=== PATIENT | female | born 1955 | race Asian ===

== ENCOUNTER 2020-01-06 14:11 | Outpatient (CLI) | payer OTHER, SELFPAY ==
--- NOTE | ~2020-01-06 | MM_ITS ---
EXAMINATION: MM screening [facility] BI w delilah HISTORY: Screening mammogram TECHNIQUE: Craniocaudal and mediolateral oblique 3-D tomosynthesis images were obtained and synthetic 2-D images were generated. CAD analysis was submitted and interpreted. COMPARISON: 12/08/2018, 08/17/2017, 01/18/2013 BREAST PARENCHYMAL COMPOSITION: The breasts are heterogeneously dense, which may obscure small masses . FINDINGS: There is no evidence of suspicious mass, calcification, or architectural distortion to sugg est malignancy in either breast. There has been no suspicious interval change. IMPRESSION: 1. No mammographic evidence of malignancy. 2. Recommend routine screening mammography in one year. BI-RADS Category 1: Negative Reviewed, dictated and finalized at location A.
== END 2020-01-06 14:12 | disposition home or self-care (01) ==
LOC: ANHIMG 14:13
PROVIDERS: PCP Family Medicine; Visit Provider Family Medicine
DX: Z12.31 Encounter for screening mammogram for malignant neoplasm of breast (principal)
CPT/HCPCS: 77063; 77067

== ENCOUNTER 2020-09-28 08:50 | Emergency (ER) | payer MEDICARE, OTHER, SELFPAY ==
[2020-09-28 09:02] VITALS: BP 149/90; PULSE 92; RESP 16; TEMP 36.6; O2SAT 98
--- NOTE | 2020-09-28 09:14 | ED.SKABFB ---
HPI - Skin/Abscess/Foreign Bdy General Chief complaint: Skin/Abscess/Foreign Body Stated complaint: Insect Bites Time Seen by Provider: 09/28/20 09:06 Source: patient and RN notes reviewed Mode of arrival: ambulatory Limitations: no limitations History of Present Illness HPI narrative: Patient presents today complaining of severely pruritic insect bites to the bilateral extremities and low back x2 days. She noted the insect bites when they return from her cabin. She has been using Benadryl, leftover hydroxyzine, hydrocortisone, and alcohol wipes without much relief. MD complaint: insect bite/sting Related Data Home Medications Medication Instructions Recorded Confirmed ergocalciferol (vitamin D2) 09/28/20 Allergies Allergy/AdvReac Type Severity Reaction Status Date / Time No Known Allergies Allergy Unknown Unverified 09/28/20 09:00 Review of Systems Review of Systems: Narrative: CONSTITUTIONAL: Denies body aches, fever, chills, or sweats. EYES: Denies visual changes, redness, or discharge. ENT: Denies rhinorrhea, congestion, sore throat, or otalgia. CARDIOVASCULAR: Denies chest pain, palpitations, or edema. RESPIRATORY: Denies cough or dyspnea. GASTROINTESTINAL: Denies abdominal pain, nausea, vomiting, or diarrhea. GENITOURINARY: Denies dysuria or hematuria. SKIN: + Insect bites MUSCULOSKELETAL: Denies back pain, joint pain, or myalgia. NEUROLOGIC: Denies headache, numbness, tingling, or weakness. PSYCH: Denies depression or anxiety. [facility] Past Medical History Medical History Borderline diabetes HTN (hypertension) Hypothyroidism (acquired) Mixed hyperlipidemia Family History Family History Mother Hypertension Family history of elevated blood lipids Family history of diabetes mellitus in first degree relative Social History Social History Social History: Smoking status: Never smoker Tobacco type: cigarettes Second hand tobacco smoke exposure: No Smoking end date: 04/06/08 Alcohol intake: current Drinks per week: 2 Substance use: never Substance use type: does not use Gender identity (if verbalized by the patient): Female Comments At time of signature, I have reviewed and agree with nursing past medical, surgical, social and family history unless otherwise noted. Please see nursing chart for further information. There is no relevant family history pertinent to the presenting complaint Exam Narrative: Exam Narrative: GENERAL: Well-appearing, well-nourished, and in no acute distress. HEAD: Normocephalic, atraumatic. EYES: EOMI. No redness or drainage. Conjunctivae normal. ENT: Mucous membranes pink and moist. NECK: Normal AROM. CHEST: No respiratory distress. EXTREMITIES: Normal range of motion. No edema. SKIN: Warm, dry. Capillary refill normal. Normal skin turgor. Scattered erythematous papules over the bilateral upper and lower extremities and cluster of the low back consistent with tiny bug bites. No pustules or vesicles noted. No induration or fluctuance noted. No other signs of bacterial infection. NEURO: No focal deficits. Alert and oriented x3. Gait steady. PSYCH: Normal affect. No signs of depression or anxiety. Course Vital Signs Vital signs: Vital Signs Temperature 97.9 F 09/28/20 09:02 Pulse Rate 92 09/28/20 09:02 Respiratory Rate 16 09/28/20 09:02 Blood Pressure 149/90 H 09/28/20 09:02 Pulse Oximetry 98 09/28/20 09:02 Temperature 97.9 F 09/28/20 09:02 Pulse Rate 92 09/28/20 09:02 Respiratory Rate 16 09/28/20 09:02 Blood Pressure 149/90 H 09/28/20 09:02 Pulse Oximetry 98 09/28/20 09:02 Reviewed. Pt has been instructed to follow up with her PCP regarding her elevated blood pressure today. MDM - Skin/Abscess/Foreign Bd
== END 2020-09-28 09:22 | disposition home or self-care (01) ==
PROVIDERS: Emergency Provider Nurse Practitioner; PCP Family Medicine
DX: S40.862A Insect bite (nonvenomous) of left upper arm, initial encounter (principal); S40.861A Insect bite (nonvenomous) of right upper arm, initial encounter; S80.862A Insect bite (nonvenomous), left lower leg, initial encounter; S80.861A Insect bite (nonvenomous), right lower leg, initial encounter; S30.860A Insect bite (nonvenomous) of lower back and pelvis, initial encounter; W57.XXXA Bitten or stung by nonvenomous insect and other nonvenomous arthropods, initial encounter; R73.03 Prediabetes; I10 Essential (primary) hypertension; E03.9 Hypothyroidism, unspecified; E78.2 Mixed hyperlipidemia
CPT/HCPCS: 99213; G0463

== ENCOUNTER 2021-03-06 13:46 | Outpatient (CLI) | payer MEDICARE, OTHER, SELFPAY ==
--- NOTE | ~2021-03-06 | US_ITS ---
EXAMINATION: US soft tissue head and neck DATE: 03/06/2021 14:11 INDICATION: Asymmetric right supraclavicular mass/swelling. TECHNIQUE: Multiple grayscale and Doppler ultrasound images were obtained of the right supraclavicula r region of concern and of the contralateral left supraclavicular region for comparison. COMPARISON: None FINDINGS: Normal-sized 8 x 4 x 6 mm hypoechoic right supraclavicular lymph node. The subcutaneous fat in the re troclavicular region appears slightly thicker than in the contralateral left supraclavicular region. No discrete lipoma or other soft tissue masses identified. No fluid collections identified. IMPRESSION: 1. Unremarkable study with normal sized lymph node and no abnormal masses or fluid collections in the right supra clavicular region of concern. Reviewed, dictated and finalized at location A. H RN IMPRESSION: 1. Unremarkable study with normal sized lymph node and no abnormal masses or fl uid collections in the right supra clavicular region of concern.
== END 2021-03-06 13:47 | disposition home or self-care (01) ==
PROVIDERS: PCP Family Medicine; Visit Provider Physician Assistant
DX: R22.1 Localized swelling, mass and lump, neck (principal)
CPT/HCPCS: 76536

== ENCOUNTER 2021-05-29 14:32 | Outpatient (CLI) | payer MEDICARE, OTHER, SELFPAY ==
--- NOTE | ~2021-05-29 | MM_ITS ---
EXAMINATION: MM screening [facility] BI w delil[facility] HISTORY: Screening mammogram TECHNIQUE: Craniocaudal and mediolateral oblique 3-D tomosynthesis images were obtained and synthetic 2-D images were generated. CAD analysis was submitted and interpreted. COMPARISON: 01/06/2020, 12/2018, 08/17/2017 bilateral screening mammogram examinations BREAST PARENCHYMAL COMPOSITION: The breasts are heterogeneously dense, which may obscure small masses . FINDINGS: There is no evidence of suspicious mass, calcification, or architectural distortion to sugg est malignancy in either breast. There has been no suspicious interval change. IMPRESSION: 1. No mammographic evidence of malignancy. 2. Recommend routine screening mammography in one year. BI-RADS Category 1: Negative Reviewed, dictated and finalized at location A. [employer] PROFESSOR
== END 2021-05-29 14:33 | disposition home or self-care (01) ==
PROVIDERS: PCP Family Medicine; Visit Provider Physician Assistant
DX: Z12.31 Encounter for screening mammogram for malignant neoplasm of breast (principal)
CPT/HCPCS: 77063; 77067

== ENCOUNTER 2021-09-03 10:31 | Outpatient (CLI) | payer MEDICARE, OTHER, SELFPAY ==
--- NOTE | ~2021-09-03 | DEXA_ITS ---
Bone Density Report Name: JOHN MILES Age: 66 Sex: Female Ethnicity: Date of : 1955 Indication: postmenopausal; screening for osteoporosis; Referring Provider: RAKESH, MAIDA Garg Study: Bone densitometry was performed. Exam Date: September 03, 2021 Accession number: [id number] Bone Density: Region BMD T-score Z-score Classification AP Spine(L1, L2, L3) 0.981 -0.3 1.5 Normal Femoral Neck (Left) 0.689 -1.4 0.1 Osteopenia Total Hip (Left) 0.865 -0.6 0.7 Normal Femoral Neck (Right) 0.711 -1.2 0.3 Osteopenia Total Hip (Right) 0.908 -0.3 1.0 Normal Total Hip Mean 0.886 -0.5 0.9 Normal World Health Organization criteria for BMD impression classify patients as: Normal (T-score at or above -1.0), Osteopenia (T-score between -1.0 and -2.5), or Osteoporosis (T-score at or below -2.5). 10-year Fracture Risk(1): Major Osteoporotic Fracture 4.8% Hip Fracture 0.5% Reported Risk Factors: [place] (), Neck BMD=0.689, BMI=28.8 (1) FRAX(R) Version 3.08. Fracture probability calculated for an untreated patient. Fracture probability may be lower if the patient has received treatment. Previous Exams: Region Exam Age BMD T-score BMD Change BMD Change Date g/cm2 vs Baseline vs Previous AP Spine (L1-L3) 09/03/2021 66 0.981 -0.3 0.027 (2.8%)# 0.025 (2.6%)* 12/08/2018 63 0.956 -0.6 0.002 (0.2%)# -0.005 (-0.5%) 03/23/2015 59 0.961 -0.5 0.006 (0.7%)# 0.006 (0.7%)# 01/18/2013 57 0.955 -0.6 Total Hip(Left) 09/03/2021 66 0.865 -0.6 0.002 (0.3%)# -0.080 (-8.5%) 12/08/2018 63 0.944 0.0 0.082 (9.5%)# 0.073 (8.4%)* 03/23/2015 59 0.871 -0.6 0.009 (1.1%)# 0.009 (1.1%)# 01/18/2013 57 0.862 -0.7 Total Hip(Right) 09/03/2021 66 0.908 -0.3 0.031 (3.5%)# -0.023 (-2.5%) 12/08/2018 63 0.932 -0.1 0.054 (6.2%)# 0.062 (7.1%)* 03/23/2015 59 0.869 -0.6 -0.008 (-0.9%) -0.008 (-0.9%) 01/18/2013 57 0.877 -0.5 *Denotes significance at 95% confidence level, LSC for AP Spine = 0.022 g/cm2, LSC for Total Hip = 0.027 g/cm2 # Denotes dissimilar scan types or analysis methods Clinical Information Provided by Patient: Has used the following medications: Vitamin D, Calcium Patient maximum height was 59.5 Menopause Age: 40 Does not regularly consume dairy products Drinks caffeinated beverages Onset of menses at age 13 Number of children 1 Impression: The patient has low
== END 2021-09-03 10:32 | disposition home or self-care (01) ==
PROVIDERS: PCP Family Medicine; Visit Provider Family Medicine
DX: Z78.0 Asymptomatic menopausal state (principal); M85.89 Other specified disorders of bone density and structure, multiple sites
CPT/HCPCS: 77080

== ENCOUNTER 2021-09-19 15:07 | Outpatient (CLI) | payer MEDICARE, OTHER, SELFPAY ==
--- NOTE | ~2021-09-19 | XR_ITS ---
XR knee LT 3V DATE: 09/19/2021 15:28 INDICATION: Medial and posterior knee pain for 2 weeks. No injury. TECHNIQUE: AP, lateral and sunrise views COMPARISON: None FINDINGS: There is slight periarticular spurring of the patella consistent with minimal patellofemora l osteoarthritis. Joint spaces are well preserved. No radiopaque intra-articular loose body or chondr ocalcinosis. No fracture or dislocation or joint effusion. No periosteal reaction or bone destruction. IMPRESSION: Slight patellofemoral osteoarthritis Reviewed, dictated and finalized at location A.
== END 2021-09-19 15:08 | disposition home or self-care (01) ==
PROVIDERS: PCP Family Medicine; Visit Provider Family Medicine
DX: M23.90 Unspecified internal derangement of unspecified knee (principal); M25.562 Pain in left knee; M17.12 Unilateral primary osteoarthritis, left knee
CPT/HCPCS: 73562

== ENCOUNTER 2021-09-24 15:37 | Outpatient (CLI) | payer MEDICARE, OTHER, SELFPAY ==
--- NOTE | ~2021-09-24 | CT_ITS ---
EXAMINATION: CT knee LT wo con DATE: 09/24/2021 16:09 INDICATION: Left knee pain TECHNIQUE: High resolution computed tomography (CT) of the left knee was performed without intravenou s contrast. Additional sagittal and coronal reconstructions were performed. Automated exposure contro l and iterative reconstruction technique were employed. The dose-length product was 388.35 mGy-cm. COMPARISON: Radiograph dated 09/19/2021 FINDINGS: Alignment is normal. No fracture. Joint spaces are normal on nonweightbearing imaging. There is a sma ll knee joint effusion at the suprapatellar pouch. Mild cortical irregularity and subarticular cystli ke changes at the caudal aspect of the medial trochlea suggesting overlying high-grade chondromalacia . The visualized soft tissues are unremarkable. IMPRESSION: 1. Joint spaces appear normal on nonweightbearing imaging but with small region of cortical regularit y at the inferior aspect of the medial trochlea suggesting overlying high-grade chondromalacia. Line 2. Small left knee joint effusion. Reviewed, dictated and finalized at location B. IMPRESSION: 1. Joint spaces appear normal on nonweightbearing imaging but with small region of cortical regularity at the inferior aspect of the medial trochlea suggestin g overlying high-grade chondromalacia. Line 2. Small left knee joint effusion.
== END 2021-09-24 15:38 | disposition home or self-care (01) ==
PROVIDERS: PCP Family Medicine; Visit Provider Family Medicine
DX: M25.562 Pain in left knee (principal); M25.462 Effusion, left knee
CPT/HCPCS: 73700

== ENCOUNTER 2022-08-06 13:19 | Outpatient (CLI) | payer MEDICARE, OTHER, SELFPAY ==
--- NOTE | ~2022-08-06 | MM_ITS ---
EXAMINATION: MM screening [facility] BI w delilah HISTORY: Screening mammogram TECHNIQUE: Craniocaudal and mediolateral oblique 3-D tomosynthesis images were obtained and synthetic 2-D images were generated. CAD analysis was submitted and interpreted. COMPARISON: 05/29/2021, 01/06/2020, 12/08/2018 BREAST PARENCHYMAL COMPOSITION: The breasts are heterogeneously dense, which may obscure small masses . FINDINGS: No suspicious mass, calcification, or architectural distortion are identified in either mans[place] ast to suggest malignancy. There has been no suspicious interval change. IMPRESSION: 1. No mammographic evidence of malignancy. 2. Recommend routine screening mammography in one year. BI-RADS Category 1: Negative Reviewed, dictated and finalized at location A.
== END 2022-08-06 13:20 | disposition home or self-care (01) ==
LOC: ANHIMG 13:21
PROVIDERS: PCP Family Medicine; Visit Provider Nurse Practitioner Gerontology
DX: Z12.31 Encounter for screening mammogram for malignant neoplasm of breast (principal)
CPT/HCPCS: 77063; 77067

== ENCOUNTER 2022-08-07 08:26 | Day surgery (SDC) | payer MEDICARE, OTHER, SELFPAY ==
[2022-06-26 10:15] VITALS: BMI 28.3
[2022-07-23 11:07] VITALS: BMI 29.7
--- NOTE | 2022-08-06 11:59 | WPDANESEPPF ---
Anes - Initial Pre Proc Eval Procedure: Operation Date: 08/07/22 10:00 Proposed Procedures p Screening Colonoscopy - Ruy James MD Date/Time: 08/06/22 11:59 Surgeon: Ruy James MD Pre Op Diagnosis: Neoplasm Screening Patient Data Age: 67 Gender: F Height: 1.52 m Weight: 69 kg Allergies Allergy/AdvReac Type Severity Reaction Status Date / Time No Known Allergies Allergy Unknown Verified 08/07/22 09:08 Home Medications Medication Instructions Recorded Confirmed Type amlodipine 5 mg tablet See Rx Instructions .Route 05/20/22 08/07/22 Rx .COMPLEX #90 tabs levothyroxine 75 mcg tablet See Rx Instructions .Route 05/20/22 08/07/22 Rx .COMPLEX #90 tabs losartan 100 mg tablet See Rx Instructions .Route 05/20/22 08/07/22 Rx .COMPLEX #90 tabs simvastatin 20 mg tablet See Rx Instructions .Route 05/20/22 08/07/22 Rx .COMPLEX #90 tabs hydroxyzine HCl 25 mg tablet See Rx Instructions .Route 05/27/22 08/07/22 Rx .COMPLEX #60 tabs escitalopram oxalate 10 mg tablet 10 mg PO DAILY #30 tabs 06/25/22 08/07/22 Rx (Lexapro) ergocalciferol (vitamin D2) 1,250 1,250 mcg PO WEEKLY #14 caps 07/14/22 08/07/22 Rx mcg (50,000 unit) capsule oxybutynin chloride 5 mg 5 mg PO DAILY #90 tabs 07/23/22 08/07/22 Rx tablet,extended release 24 hr Patient hx anesthesia problems: none Family hx anesthesia problems: none Results Review: All pre-operative results and documents have been reviewed as part of the pre-operative evaluation. [facility] Past Medical History Medical History Anxiety Arthritis Borderline diabetes HTN (hypertension) Hypothyroidism (acquired) Leg cramps Mixed hyperlipidemia Family History Family History Mother Hypertension Family history of elevated blood lipids Family history of diabetes mellitus in first degree relative Heart disease Sibling Cancer Father Hypertension Heart disease Social History Social History (Updated 07/17/22 @ 10:27 by Liz Cavazos) Social History: Smoking status: Never smoker Tobacco type: cigarettes Second hand tobacco smoke exposure: No Smoking end date: 04/06/08 Alcohol intake: current Alcohol use details: socially Substance use: never Substance use type: does not use Lack of Transportation: No Lack of Food: Never True Current Housing: I Have Housing Concerned About Future Housing: No Difficulty Paying Gas/Electric Bills: No Difficulty Paying for Meds: No Currently Unemployed: YES Education: Decline to Answer Difficulty w/ Childcare or Family Care: No Living arrangements: with family Occupation/Education: retired Gender identity (if verbalized by the patient): Female Sexual Orientation (if Verbalized by the Patient): Straight or Heterosexual Spiritual care concerns: No Anes - Eval Final PreProcedure Day of Procedure 08/06/22 11:59 Patient weight: overweight Heart: regular rate and rhythm Lungs: clear to auscultation and normal air movement Airway: Mallampati scale class II Neurological: alert and oriented Last oral intake: >/= 8 hours ASA classification: III Emergent: no Anesthetic plan: proceed Anesthesia type and monitoring: general GIVS Results Review: All pre-operative results and documents have been reviewed as part of the pre-operative evaluation. Informed Consent: The patient's anesthetic plan and its attendant risks and benefits were discussed with the patient/family/POA. Questions were solicited and answers provided to the satisfaction of the patient/family/POA.
--- NOTE | 2022-08-06 12:32 | PM.HPGS ---
History of Present Illness History of Present Illness Consent: Risks, benefits, and alternatives have been discussed and questions answered. Patient agrees to proceed with procedure. Chief complaint: Neoplasm Screening Narrative: Micaela Luciano is a 67 year old female For colon cancer screening. She had a small polyp removed at the time of her colonoscopy 7 years ago. Review of Systems Review of Systems: All systems reviewed & are unremarkable except as noted in HPI and below PMFSH Past Medical History Medical History Anxiety Arthritis Borderline diabetes HTN (hypertension) Hypothyroidism (acquired) Leg cramps Mixed hyperlipidemia Family History Family History Mother Hypertension Family history of elevated blood lipids Family history of diabetes mellitus in first degree relative Heart disease Sibling Cancer Father Hypertension Heart disease Social History Social History Social History: Smoking status: Never smoker Tobacco type: cigarettes Second hand tobacco smoke exposure: No Smoking end date: 04/06/08 Alcohol intake: current Alcohol use details: socially Substance use: never Substance use type: does not use Lack of Transportation: No Lack of Food: Never True Current Housing: I Have Housing Concerned About Future Housing: No Difficulty Paying Gas/Electric Bills: No Difficulty Paying for Meds: No Currently Unemployed: YES Education: Decline to Answer Difficulty w/ Childcare or Family Care: No Living arrangements: with family Occupation/Education: retired Gender identity (if verbalized by the patient): Female Sexual Orientation (if Verbalized by the Patient): Straight or Heterosexual Spiritual care concerns: No Meds Home Medications and Allergies Home Medications Medication Instructions Recorded Confirmed Type amlodipine 5 mg tablet See Rx Instructions .Route 05/20/22 08/07/22 Rx .COMPLEX #90 tabs levothyroxine 75 mcg tablet See Rx Instructions .Route 05/20/22 08/07/22 Rx .COMPLEX #90 tabs losartan 100 mg tablet See Rx Instructions .Route 05/20/22 08/07/22 Rx .COMPLEX #90 tabs simvastatin 20 mg tablet See Rx Instructions .Route 05/20/22 08/07/22 Rx .COMPLEX #90 tabs hydroxyzine HCl 25 mg tablet See Rx Instructions .Route 02/21/23 05/04/23 Rx .COMPLEX #60 tabs escitalopram oxalate 10 mg tablet 10 mg PO DAILY #30 tabs 06/25/22 08/07/22 Rx (Lexapro) ergocalciferol (vitamin D2) 1,250 1,250 mcg PO WEEKLY #14 caps 07/14/22 08/07/22 Rx mcg (50,000 unit) capsule oxybutynin chloride 5 mg 5 mg PO DAILY #90 tabs 07/23/22 08/07/22 Rx tablet,extended release 24 hr Allergies Allergy/AdvReac Type Severity Reaction Status Date / Time No Known Allergies Allergy Unknown Verified 08/07/22 09:08 Exam Const: General: alert Orientation/consciousness: patient oriented x3 Resp: Auscultation: clear to auscultation bilaterally Cardio: Rhythm: regular rhythm GI: GI Palp: Yes Soft to palpation and No Tenderness to palpation present (GI) Neuro: General: patient oriented x3 Assessment and Plan Assessment and plan (1) Colon cancer screening: Code(s): Z12.11 - Encounter for screening for malignant neoplasm of colon Status: Acute Assessment and Plan: Colonoscopy with possible biopsy or polypectomy or cautery or injection of substances.
[2022-08-07 08:45] VITALS: BP 132/80; PULSE 75; RESP 20; TEMP 36.7; O2SAT 95
[2022-08-07] MEDS: LACTATED RINGERS 1,000 ML 150 ML IV CONT (09:12)
[2022-08-07 10:24] VITALS: BP 84/68; PULSE 88; RESP 16; O2SAT 96
[2022-08-07 10:34] VITALS: BP 96/68; PULSE 88; RESP 16; O2SAT 96
--- NOTE | 2022-08-07 10:44 | SUR.PHASEII ---
PT AWAKE AND ALERT. DRINKING JUICE. DENIES PAIN OR NAUSEA. TALKATIVE WITH SPOUSE.
[2022-08-07 10:45] VITALS: BP 133/82; PULSE 85; RESP 16; O2SAT 97
--- NOTE | 2022-08-19 08:30 | WPDANESPN ---
Anes - Prog Note Post-Op Date/Time: 08/19/22 08:30 Cardiovascular status: normal Respiratory status: normal Airway patency: baseline Mental status: baseline Post-Op hydration status: normal Vital Signs: Last Vital Signs Temp 36.7 C 08/07/22 08:45 Pulse 85 08/07/22 10:45 Resp 16 08/07/22 10:45 BP 133/82 08/07/22 10:45 Pulse Ox 97 08/07/22 10:45 O2 Del Method Room Air 08/07/22 10:45 Pain Score (VAS): 0 Post-procedural complaints: none Patient Feedback: Patient satisfied with anesthetic care.
== END 2022-08-07 11:00 | disposition home or self-care (01) ==
PROVIDERS: Visit Provider Internal Medicine Gastroenterology
PROC: 0DJD8ZZ Inspection of Lower Intestinal Tract, Via Natural or Artificial Opening Endoscopic (ICD-10-PCS; CPT 45378; principal; 2022-08-07 10:00)
DX: Z12.11 Encounter for screening for malignant neoplasm of colon (principal)
CPT/HCPCS: 45378

== ENCOUNTER 2022-08-08 10:57 | Emergency (ER) | payer MEDICARE, OTHER, SELFPAY ==
[2022-08-08 11:08] VITALS: BP 130/79; PULSE 95; RESP 16; TEMP 36.5; O2SAT 98
--- NOTE | 2022-08-08 11:28 | ED.SKABFB ---
HPI - Skin/Abscess/Foreign Bdy General Chief complaint: Skin/Abscess/Foreign Body Stated complaint: Rash Time Seen by Provider: 08/08/22 11:30 Source: patient Mode of arrival: ambulatory Limitations: no limitations History of Present Illness HPI narrative: 67 y/o female presented for c/o rash to abdomen for about 1 week. Taking benadryl. States rash is itchy and painful. Denies drainage. Ot states she has had similar rash in the past and has improved with steroid and cream. Patient denies any other location of lesions/rash. Denies lip, tongue, or throat swelling, shortness of breath or wheezing. Denies changes to soap, detergent, lotion, or any other exposures. No other contacts in the home with similar rash. Related Data Allergies Allergy/AdvReac Type Severity Reaction Status Date / Time No Known Allergies Allergy Unknown Verified 08/08/22 11:04 Review of Systems Review of Systems: CONSTITUTIONAL: Denies body aches, fever, chills, or sweats. EYES: Denies visual changes, redness, or discharge. ENT: Denies rhinorrhea, congestion CARDIOVASCULAR: Denies chest pain, palpitations, or edema. RESPIRATORY: Denies cough or dyspnea. GASTROINTESTINAL: Denies abdominal pain, nausea, vomiting, or diarrhea. SKIN: per HPI MUSCULOSKELETAL: Denies back pain, joint pain, or myalgia. NEUROLOGIC: Denies headache, numbness, tingling, or weakness. [facility] Past Medical History Medical History Anxiety Arthritis Borderline diabetes HTN (hypertension) Hypothyroidism (acquired) Leg cramps Mixed hyperlipidemia Family History Family History Mother Hypertension Family history of elevated blood lipids Family history of diabetes mellitus in first degree relative Heart disease Sibling Cancer Father Hypertension Heart disease Social History Social History Social History: Smoking status: Never smoker Tobacco type: cigarettes Second hand tobacco smoke exposure: No Smoking end date: 04/06/08 Alcohol intake: current Alcohol use details: socially Substance use: never Substance use type: does not use Lack of Transportation: No Lack of Food: Never True Current Housing: I Have Housing Concerned About Future Housing: No Difficulty Paying Gas/Electric Bills: No Difficulty Paying for Meds: No Currently Unemployed: YES Education: Decline to Answer Difficulty w/ Childcare or Family Care: No Living arrangements: with family Occupation/Education: retired Gender identity (if verbalized by the patient): Female Sexual Orientation (if Verbalized by the Patient): Straight or Heterosexual Spiritual care concerns: No Comments At time of signature, I have reviewed and agree with nursing past medical, surgical, social and family history unless otherwise noted. Please see nursing chart for further information. There is no relevant family history pertinent to the presenting complaint Exam Narrative: GENERAL: Well-appearing HEAD: Normocephalic, atraumatic. EYES: conjunctivae clear, and EOMI. ENT: Mucous membranes moist. Oropharynx without edema, erythema or lesions. NECK: Supple. No lymphadenopathy CHEST: Clear to auscultation. HEART: Regular rate and rhythm. SKIN: Warm, dry. Mildly erythematous slightly raised patches to both sides of abdomen, consistent with urticaria; no other locations. NEURO: Alert and oriented x3. Course Course Emergency Course: Patient is aware of diagnosis, understands and agrees to treatment plan. Anticipatory guidance given. Patient agrees to follow-up as directed and is aware of reasons to seek care at the emergency department. Portions of this record may have been created with voice recognition software Level of Care: Express Care Visit Vital Signs Vital signs: Vital Signs
[2022-08-08] MEDS: methylPREDNISolone ACETATE 40 MG/ML VIAL IM (11:49)
== END 2022-08-08 11:55 | disposition home or self-care (01) ==
PROVIDERS: Emergency Provider Nurse Practitioner Family; PCP Family Medicine
DX: L50.9 Urticaria, unspecified (principal); I10 Essential (primary) hypertension; E03.9 Hypothyroidism, unspecified; E78.2 Mixed hyperlipidemia; Z87.891 Personal history of nicotine dependence
CPT/HCPCS: 99213; G0463; J1030

== ENCOUNTER 2023-04-28 13:59 | Outpatient (CLI) | payer MEDICARE, OTHER, SELFPAY ==
[2023-04-28 14:39] LABS: Appearance Urine Clear (Clear); Bacteria Urine None Seen /hpf; Bilirubin Urine Negative (Negative); Blood Urine Negative (Negative); Color Urine Yellow (Yellow); Glucose Urine UA Negative (Negative); Ketones Urine Negative (Negative); Leukocyte Esterase Ur Trace LEU/UL (Negative); Nitrate Urine Negative (Negative); Non Pathogenic Casts 0-2; Protein Urine Negative (Negative); RBC Urine 0-2 /hpf (0-2); Specific Grav Ur 1.008 (1.001-1.035); Squamous Epithelial Cell Urine None seen /hpf (Few); Urobilinogen Urine 0.2 mg/dL (<2.0); WBC Urine 0-5 /hpf
[2023-04-28 15:00] LABS: Add Urine Microscopic? YES
== END 2023-04-28 14:00 | disposition home or self-care (01) ==
PROVIDERS: PCP Family Medicine; Visit Provider Family Medicine
DX: R30.0 Dysuria (principal)
CPT/HCPCS: 81001

== ENCOUNTER 2023-07-14 15:17 | Outpatient (CLI) | payer MEDICARE, OTHER, SELFPAY ==
--- NOTE | ~2023-07-14 | XR_ITS ---
XR chest 2V 07/14/2023 15:37 Indication: Dry cough at night Procedure: PA and lateral views of the chest Comparison: No prior studies for comparison. Findings: Heart size normal. No focal air space disease, pulmonary edema, pleural effusion or suspect ed pneumothorax. Impression: 1: No acute cardiopulmonary disease. Reviewed, dictated and finalized at location A. Impression: 1: No acute cardiopulmonary disease.
== END 2023-07-14 15:18 | disposition home or self-care (01) ==
PROVIDERS: PCP Family Medicine; Visit Provider Family Medicine
DX: R05.9 Cough, unspecified (principal)
CPT/HCPCS: 71046

== ENCOUNTER 2024-09-29 14:42 | Outpatient (CLI) | payer MEDICARE, OTHER, SELFPAY ==
--- NOTE | ~2024-09-29 | DEXA_ITS ---
Bone Density Report Name: JOHN MILES Age: 69 Sex: Female Ethnicity: Date of : 1955 Indication: postmenopausal; screening for osteoporosis; Referring Provider: RACHEL ACOSTA Study: Bone densitometry was performed. Exam Date: September 29, 2024 Accession number: [id number] Bone Density: Region BMD T-score Z-score Classification AP Spine(L1-L4) 0.984 -0.6 1.5 Normal Femoral Neck (Left) 0.692 -1.4 0.3 Osteopenia Total Hip (Left) 0.929 -0.1 1.4 Normal Femoral Neck (Right) 0.679 -1.5 0.2 Osteopenia Total Hip (Right) 0.946 0.0 1.5 Normal Total Hip Mean 0.937 -0.1 1.5 Normal World Health Organization criteria for BMD impression classify patients as: Normal (T-score at or above -1.0), Osteopenia (T-score between -1.0 and -2.5), or Osteoporosis (T-score at or below -2.5). 10-year Fracture Risk(1): Major Osteoporotic Fracture 5.7% Hip Fracture 1.3% Reported Risk Factors: [place] (), Neck BMD=0.679, BMI=27.9, smoking (1) FRAX(R) Version 3.08. Fracture probability calculated for an untreated patient. Fracture probability may be lower if the patient has received treatment. Previous Exams: Region Exam Age BMD T-score BMD Change BMD Change Date g/cm2 vs Baseline vs Previous AP Spine (L1-L4) 09/29/2024 69 0.984 -0.6 0.007 (0.7%)# 0.007 (0.7%)# 01/18/2013 57 0.978 -0.6 *Denotes significance at 95% confidence level, LSC for AP Spine = 0.022 g/cm2 # Denotes dissimilar scan types or analysis methods Clinical Information Provided by Patient: Smokes Has used the following medications: Vitamin D, Calcium Patient maximum height was 59 Menopause Age: 40 Drinks caffeinated beverages Onset of menses at age 13 Number of children 2 Impression: The patient has low bone mass, based on the Right Femoral Neck T-score. The patient has an estimated ten-year risk of hip fracture of 1.3% and an estimated ten-year risk of major fracture of 5.7%, based on the WHO FRAX algorithm. The patient has risk factors, including: smoking. No significant bone loss was observed. Discussion: BONE DENSITY IS LOW AT ONE OR MORE SKELETAL SITES. This patient's lowest T-score is low at one or more skeletal sites. It meets the World Health Organization's (WHO) criteria for ?low bone mass? (T-score between -1.0 and -2.5). The patient's 10-year risk of fracture as calculated by FRAX is less than the threshold where pharmacological therapy is recommended by the National Osteoporosis Foundation (NOF). However, all treatment decisions require clinical judgment and consideration of individual patient factors, including patient preferences, comorbidities, previous drug use, risk factors not captured in the FRAX model (e.g., frailty, falls, vitamin D deficiency, increased bone turnover, interval significant decline in bone density) and possible under or overestimation of fracture risk by FRAX. The patient should follow a healthful lifestyle (good nutrition with adequate calcium and vitamin D, and appropriate weight-bearing exercise). Follow-Up: Consider repeating this study in 2 to 3 years to reassess this patient's status, or sooner if there is some new clinical indication. Reported by: LAZARO on 09/29/2024 3:28:00 PM. Reviewed, dictated and finalized at location A.
--- NOTE | ~2024-09-29 | MM_ITS ---
EXAMINATION: MM screening [facility] BI w delilah HISTORY: Screening mammogram TECHNIQUE: Craniocaudal and mediolateral oblique 3-D tomosynthesis images were obtained and synthetic 2-D images were generated. CAD analysis was submitted and interpreted. COMPARISON: No prior mammogram is available for comparison at this institution. BREAST PARENCHYMAL COMPOSITION:Not Dense. There are scattered areas of fibroglandular density. FINDINGS: No suspicious mass, calcification, or architectural distortion are identified in either mansoor ast to suggest malignancy. There has been no suspicious interval change. IMPRESSION: No mammographic evidence of malignancy. Recommend routine screening mammography in one year. BI-RADS Category 1: Negative Reviewed, dictated and finalized at location .
== END 2024-09-29 14:43 | disposition home or self-care (01) ==
LOC: ANHIMG 14:42
PROVIDERS: PCP Family Medicine; Visit Provider Family Medicine
DX: Z12.31 Encounter for screening mammogram for malignant neoplasm of breast (principal); Z78.0 Asymptomatic menopausal state; M85.89 Other specified disorders of bone density and structure, multiple sites
CPT/HCPCS: 77063; 77067; 77080